=== PATIENT | male | born 1960 | race Caucasian/White ===

== ENCOUNTER 2024-05-02 08:16 | Emergency (ER) | payer BC ==
[2024-05-02] MEDS: Orphenadrine 100 MG Tab.ER PO ONE (09:16)
[2024-05-02] MEDS: Ketorolac 60 MG/2 ML SDV IM ONE (09:16)
== END 2024-05-02 09:45 | disposition home or self-care (01) ==
LOC: JD.ED 08:16
DX: M54.40 Lumbago with sciatica, unspecified side (principal); E11.9 Type 2 diabetes mellitus without complications; Z79.899 Other long term (current) drug therapy; W01.0XXA Fall on same level from slipping, tripping and stumbling without subsequent striking against object, initial encounter
CPT/HCPCS: 96372; 99283; A9270; J1885

== ENCOUNTER 2024-07-11 11:08 | Emergency (ER) | payer BC ==
[2024-07-11 12:58] LABS: BASOPHILS PERCENT AUTO 0.2 % (0.0-1.0); EOSINOPHILS ABSOLUTE AUTO 0.2 K/mm3 (0.0-0.4); EOSINOPHILS PERCENT AUTO 1.7 % (0.0-6.0); HEMOGLOBIN 12.5 gm/dl (14.0-18.0); IMMATURE GRAN ABSOLUTE AUTO 0.04 K/mm3 (0.00-0.05); IMMATURE GRAN PERCENT AUTO 0.4 % (0.0-0.4); LYMPHOCYTES ABSOLUTE AUTO 1.7 K/mm3 (1.0-4.8); LYMPHOCYTES PERCENT AUTO 18.3 % (24.0-44.0); MEAN CORPUSCULAR HEMOGLOBIN 29.6 pg (28.0-32.0); MEAN CORPUSCULAR HGB CONC 32.1 g/dl (32.0-36.0); MEAN CORPUSCULAR VOLUME 92.2 fl (83.0-99.0); MEAN PLATELET VOLUME 10.5 fl (9.4-12.4); MONOCYTES ABSOLUTE AUTO 0.6 K/mm3 (0.0-0.8); MONOCYTES PERCENT AUTO 6.6 % (0.0-8.0); NEUTROPHILS ABSOLUTE AUTO 6.9 K/mm3 (1.8-7.7); NEUTROPHILS PERCENT AUTO 72.8 % (41.0-71.0); PLATELET COUNT,PLT 256 K/mm3 (150-400); RED BLOOD CELL COUNT 4.23 M/mm3 (4.52-5.90); WHITE BLOOD CELL COUNT,WBC 9.52 K/mm3 (3.9-11.3)
[2024-07-11 13:21] LABS: A/G RATIO 0.8 (1-2); ALBUMIN 3.2 g/dl (3.4-5.0); ANION GAP 12.5 (5-15); BILIRUBIN TOTAL 0.2 mg/dL (0.2-1.0); BUN/CREATININE RATIO 27.5 (14-18); C-REACTIVE PROTEIN 5.34 mg/dL (<0.30); CALCIUM 9.4 mg/dL (8.5-10.1); CREATININE 1.2 mg/dL (0.7-1.3); EST CRCL DRUG DOSING (CG) 54.81 mL/min; POTASSIUM,K 4.5 mEq/L (3.5-5.1); PROTEIN TOTAL,TP 7.2 g/dl (6.4-8.2)
[2024-07-11] MEDS: Iopamidol 755 Mg/ML 100 ML Bottle IVPUSH ONE (13:28)
[2024-07-11] MEDS: Iopamidol 612 MG/ML 100 ML Bottle IVPUSH ONE (14:09)
== END 2024-07-11 15:55 | disposition home or self-care (01) ==
LOC: JD.ED 11:08
DX: C32.9 Malignant neoplasm of larynx, unspecified (principal); C32.0 Malignant neoplasm of glottis; I10 Essential (primary) hypertension; E78.00 Pure hypercholesterolemia, unspecified; E11.9 Type 2 diabetes mellitus without complications; Z87.891 Personal history of nicotine dependence; Z79.84 Long term (current) use of oral hypoglycemic drugs; Z79.899 Other long term (current) drug therapy
CPT/HCPCS: 36415; 70491; 71045; 80053; 83605; 85025; 86140; 87635; 87651; 99285; Q9967; U0002

== ENCOUNTER 2024-08-16 07:32 | Emergency (ER) | payer BC ==
[2024-08-16] MEDS: HYDROmorphone 0.5 MG/0.5 ML Syringe IVPUSH PRN (08:14)
[2024-08-16] MEDS: Sodium Chloride 0.9% 10 ML Syringe FLUSH PRN (08:14)
[2024-08-16 08:19] LABS: BASOPHILS PERCENT AUTO 0.3 % (0.0-1.0); EOSINOPHILS ABSOLUTE AUTO 0.1 K/mm3 (0.0-0.4); EOSINOPHILS PERCENT AUTO 0.9 % (0.0-6.0); HEMATOCRIT 39.6 % (42.0-52.0); HEMOGLOBIN 12.6 gm/dl (14.0-18.0); IMMATURE GRAN ABSOLUTE AUTO 0.14 K/mm3 (0.00-0.05); IMMATURE GRAN PERCENT AUTO 1.6 % (0.0-0.4); LYMPHOCYTES PERCENT AUTO 11.6 % (24.0-44.0); MEAN CORPUSCULAR HEMOGLOBIN 28.8 pg (28.0-32.0); MEAN CORPUSCULAR HGB CONC 31.8 g/dl (32.0-36.0); MEAN CORPUSCULAR VOLUME 90.4 fl (83.0-99.0); MEAN PLATELET VOLUME 10.8 fl (9.4-12.4); MONOCYTES ABSOLUTE AUTO 0.5 K/mm3 (0.0-0.8); MONOCYTES PERCENT AUTO 5.3 % (0.0-8.0); NEUTROPHILS ABSOLUTE AUTO 7.1 K/mm3 (1.8-7.7); NEUTROPHILS PERCENT AUTO 80.3 % (41.0-71.0); NRBC ABSOLUTE 0.02 (0.00-0.02); NRBC PERCENT 0.2 % (0.0-0.2); PLATELET COUNT,PLT 276 K/mm3 (150-400); RED BLOOD CELL COUNT 4.38 M/mm3 (4.52-5.90); WHITE BLOOD CELL COUNT,WBC 8.85 K/mm3 (3.9-11.3)
[2024-08-16 08:34] LABS: ANION GAP 21.8 (5-15); BUN/CREATININE RATIO 51.7 (14-18); CALCIUM 9.4 mg/dL (8.5-10.1); CREATININE 1.2 mg/dL (0.7-1.3); EST CRCL DRUG DOSING (CG) 54.81 mL/min; POTASSIUM,K 3.8 mEq/L (3.5-5.1)
[2024-08-16] MEDS: Ampicillin/Sulbactam Na 3 GM in Sodium Chloride 0.9% 100 ML IV ONE (08:42)
[2024-08-16 08:49] LABS: SLIDE REVIEW ABNORMAL SMEAR
== END 2024-08-16 09:45 | disposition home or self-care (01) ==
LOC: JD.ED 07:32
DX: L03.116 Cellulitis of left lower limb (principal); I10 Essential (primary) hypertension; E11.9 Type 2 diabetes mellitus without complications; E78.00 Pure hypercholesterolemia, unspecified; Z79.899 Other long term (current) drug therapy; Z79.84 Long term (current) use of oral hypoglycemic drugs
CPT/HCPCS: 36415; 80048; 85025; 87040; 96365; 96375; 96376; 99283; J0295; J1170; J3490

== ENCOUNTER 2024-08-17 07:59 | Emergency (ER) | payer BC ==
[2024-08-17] MEDS: Lidocaine 1% 20 ML MDV INJECT ONE (10:18)
== END 2024-08-17 10:40 | disposition home or self-care (01) ==
LOC: JD.ED 07:59
DX: L02.416 Cutaneous abscess of left lower limb (principal); E78.00 Pure hypercholesterolemia, unspecified; I10 Essential (primary) hypertension; E11.9 Type 2 diabetes mellitus without complications; Z79.899 Other long term (current) drug therapy; Z87.891 Personal history of nicotine dependence
CPT/HCPCS: 10060; 99283-25; J3490

== ENCOUNTER 2024-08-20 15:39 | Inpatient (IN) | payer BC ==
[2024-08-20] MEDS ORDERED: Naloxone 0.4 MG/ML SDV IVPUSH PRN ×2 (16:40→18:08)
[2024-08-20 16:45] LABS: BASOPHILS PERCENT AUTO 0.3 % (0.0-1.0); EOSINOPHILS ABSOLUTE AUTO 0.1 K/mm3 (0.0-0.4); EOSINOPHILS PERCENT AUTO 1.4 % (0.0-6.0); HEMATOCRIT 38.6 % (42.0-52.0); IMMATURE GRAN ABSOLUTE AUTO 0.15 K/mm3 (0.00-0.05); IMMATURE GRAN PERCENT AUTO 2.1 % (0.0-0.4); LYMPHOCYTES ABSOLUTE AUTO 1.2 K/mm3 (1.0-4.8); LYMPHOCYTES PERCENT AUTO 17.2 % (24.0-44.0); MEAN CORPUSCULAR HGB CONC 31.1 g/dl (32.0-36.0); MEAN PLATELET VOLUME 11.5 fl (9.4-12.4); MONOCYTES ABSOLUTE AUTO 0.5 K/mm3 (0.0-0.8); MONOCYTES PERCENT AUTO 7.1 % (0.0-8.0); NEUTROPHILS ABSOLUTE AUTO 5.1 K/mm3 (1.8-7.7); NEUTROPHILS PERCENT AUTO 71.9 % (41.0-71.0); NRBC ABSOLUTE 0.02 (0.00-0.02); NRBC PERCENT 0.3 % (0.0-0.2); PLATELET COUNT,PLT 369 K/mm3 (150-400); RED BLOOD CELL COUNT 4.29 M/mm3 (4.52-5.90); WHITE BLOOD CELL COUNT,WBC 7.09 K/mm3 (3.9-11.3)
[2024-08-20] MEDS: fentaNYL 100 MCG/2 ML SDV IVPUSH ONE ×2 (16:50→18:37)
[2024-08-20] MEDS: Sodium Chloride 0.9% 10 ML Syringe FLUSH PRN (16:50)
[2024-08-20 17:07] LABS: LACTIC ACID 2.8 mmol/L (0.4-2.0)
[2024-08-20 17:12] LABS: A/G RATIO 0.4 (1-2); ANION GAP 14.5 (5-15); BILIRUBIN TOTAL 0.2 mg/dL (0.2-1.0); BUN/CREATININE RATIO 45.6 (14-18); C-REACTIVE PROTEIN 6.13 mg/dL (<0.30); CALCIUM 8.8 mg/dL (8.5-10.1); CREATININE 1.8 mg/dL (0.7-1.3); EST CRCL DRUG DOSING (CG) 36.54 mL/min; POTASSIUM,K 3.5 mEq/L (3.5-5.1); PROTEIN TOTAL,TP 6.6 g/dl (6.4-8.2)
[2024-08-20] MEDS: Sodium Chloride 0.9% 1,000 ML IV SCH (17:50)
[2024-08-20] MEDS: cefTRIAXone 2 GM in Sodium Chloride 0.9% 100 ML IV ONE (17:50)
[2024-08-20] MEDS: Sodium Chloride 0.9% 10 ML Syringe FLUSH ONE (17:51)
[2024-08-20] MEDS: Iopamidol 612 MG/ML 100 ML Bottle IVPUSH ONE (18:12)
[2024-08-20] MEDS: Sodium Chloride 0.45% 1,000 ML IV SCH (19:03)
[2024-08-20] MEDS ORDERED: Lidocaine 1% 5 ML VIAL ONE (19:07)
[2024-08-20] MEDS ORDERED: Ondansetron 4 MG/2 ML SDV ONE (19:07)
[2024-08-20] MEDS ORDERED: Propofol 200 MG/20 ML SDV ONE (19:08)
[2024-08-20] MEDS ORDERED: fentaNYL 250 MCG/5 ML SDV ONE ×2 (19:08)
[2024-08-20] MEDS: VANCOmycin 2 GM/400 ML 2 GM in Premix Bag 1 BAG IV ONE (19:30)
[2024-08-20] MEDS: Meropenem 1 GM in Sodium Chloride 0.9% 100 ML IV ONE (19:37)
[2024-08-20] MEDS ORDERED: Lactated Ringers 1,000 ML ONE ×3 (19:43→20:15)
[2024-08-20] MEDS ORDERED: HYDROmorphone 0.5 MG/0.5 ML Syringe ONE ×2 (19:49→20:10)
[2024-08-20] MEDS ORDERED: Rocuronium 50 MG/5 ML Vial ONE (21:22)
[2024-08-20] MEDS ORDERED: Phenylephrine 1% 10 MG/ML SDV ONE (21:24)
[2024-08-20] MEDS ORDERED: ePHEDrine 50 MG/ML SDV ONE (21:24)
[2024-08-20] MEDS ORDERED: HYDROmorphone 0.5 MG/0.5 ML Syringe IVPUSH PRN (21:37)
[2024-08-20] MEDS ORDERED: fentaNYL 100 MCG/2 ML SDV IVPUSH PRN (21:37)
[2024-08-20] MEDS ORDERED: Ondansetron 4 MG/2 ML SDV IVPUSH PRN (21:37)
[2024-08-20 23:31] LABS: ANION GAP 11.7 (5-15); BUN/CREATININE RATIO 46.4 (14-18); CALCIUM 8.2 mg/dL (8.5-10.1); CREATININE 1.4 mg/dL (0.7-1.3); EST CRCL DRUG DOSING (CG) 46.98 mL/min; POTASSIUM,K 3.7 mEq/L (3.5-5.1)
[2024-08-21] MEDS: HYDROmorphone 1 MG/ML Syringe IVPUSH PRN (00:11)
[2024-08-21] MEDS: Dextrose 5% in Water 1,000 ML IV SCH (01:39)
[2024-08-21] MEDS: Insulin Glargine,Human Rec. Analog 100 Units/ML 3 ML Pen SUBCUT ONE (01:44)
[2024-08-21 04:41] LABS: BASOPHILS PERCENT AUTO 0.2 % (0.0-1.0); EOSINOPHILS ABSOLUTE AUTO 0.1 K/mm3 (0.0-0.4); EOSINOPHILS PERCENT AUTO 1.7 % (0.0-6.0); HEMATOCRIT 32.1 % (42.0-52.0); HEMOGLOBIN 9.9 gm/dl (14.0-18.0); IMMATURE GRAN ABSOLUTE AUTO 0.18 K/mm3 (0.00-0.05); IMMATURE GRAN PERCENT AUTO 2.8 % (0.0-0.4); LYMPHOCYTES ABSOLUTE AUTO 1.7 K/mm3 (1.0-4.8); LYMPHOCYTES PERCENT AUTO 25.7 % (24.0-44.0); MEAN CORPUSCULAR HGB CONC 30.8 g/dl (32.0-36.0); MEAN CORPUSCULAR VOLUME 90.9 fl (83.0-99.0); MEAN PLATELET VOLUME 11.4 fl (9.4-12.4); MONOCYTES ABSOLUTE AUTO 0.5 K/mm3 (0.0-0.8); NEUTROPHILS PERCENT AUTO 61.6 % (41.0-71.0); NRBC ABSOLUTE 0.02 (0.00-0.02); NRBC PERCENT 0.3 % (0.0-0.2); PLATELET COUNT,PLT 331 K/mm3 (150-400); RED BLOOD CELL COUNT 3.53 M/mm3 (4.52-5.90)
[2024-08-21] MEDS: Insulin Regular in 0.9 % NACL 100 ML IV SCH (04:50)
[2024-08-21 05:06] LABS: A/G RATIO 0.4 (1-2); ALBUMIN 1.6 g/dl (3.4-5.0); ANION GAP 10.5 (5-15); BILIRUBIN TOTAL 0.3 mg/dL (0.2-1.0); BUN/CREATININE RATIO 45.5 (14-18); CALCIUM 7.9 mg/dL (8.5-10.1); CREATININE 1.1 mg/dL (0.7-1.3); EST CRCL DRUG DOSING (CG) 59.79 mL/min; POTASSIUM,K 3.5 mEq/L (3.5-5.1); PROTEIN TOTAL,TP 5.5 g/dl (6.4-8.2)
[2024-08-21] MEDS: Insulin Glargine,Human Rec. Analog 100 Units/ML 3 ML Pen SUBCUT SCH ×2 (07:36→22:28)
[2024-08-21] MEDS ORDERED: Propofol 200 MG/20 ML SDV ONE (07:46)
[2024-08-21] MEDS ORDERED: Ketamine 200 MG/20 ML MDV ONE (07:46)
[2024-08-21] MEDS ORDERED: fentaNYL 100 MCG/2 ML SDV ONE (07:49)
[2024-08-21] MEDS: Piperacillin/Tazobactam 4.5 GM in Sodium Chloride 0.9% 100 ML IV ONE (07:52)
[2024-08-21] MEDS: VANCOmycin 1.25 GM/250 ML 1.25 GM in Premix Bag 1 BAG IV SCH (09:35)
[2024-08-21] MEDS: Piperacillin/Tazobactam 4.5 GM in Sodium Chloride 0.9% 100 ML IV SCH (11:17)
[2024-08-21 12:17] LABS: ANION GAP 9.2 (5-15); CALCIUM 7.9 mg/dL (8.5-10.1); EST CRCL DRUG DOSING (CG) 65.77 mL/min; POTASSIUM,K 3.2 mEq/L (3.5-5.1)
[2024-08-21] MEDS: Potassium Chloride 20 MEQ in Dextrose 5% in Water 1,000 ML IV SCH (13:54)
[2024-08-21] MEDS ORDERED: Potassium Chloride 20 MEQ in Dextrose 5% in Water 1,000 ML IV SCH (14:00)
[2024-08-21] MEDS ORDERED: Insulin Glargine,Human Rec. Analog 100 Units/ML 3 ML Pen SUBCUT SCH (21:00)
[2024-08-22 04:48] LABS: HEMATOCRIT 28.6 % (42.0-52.0); HEMOGLOBIN 9.1 gm/dl (14.0-18.0); MEAN CORPUSCULAR HEMOGLOBIN 28.5 pg (28.0-32.0); MEAN CORPUSCULAR HGB CONC 31.8 g/dl (32.0-36.0); MEAN CORPUSCULAR VOLUME 89.7 fl (83.0-99.0); MEAN PLATELET VOLUME 10.8 fl (9.4-12.4); NRBC ABSOLUTE 0.03 (0.00-0.02); NRBC PERCENT 0.4 % (0.0-0.2); PLATELET COUNT,PLT 304 K/mm3 (150-400); RED BLOOD CELL COUNT 3.19 M/mm3 (4.52-5.90); WHITE BLOOD CELL COUNT,WBC 7.86 K/mm3 (3.9-11.3)
[2024-08-22 05:24] LABS: A/G RATIO 0.4 (1-2); ALBUMIN 1.4 g/dl (3.4-5.0); ANION GAP 8.4 (5-15); BILIRUBIN TOTAL 0.3 mg/dL (0.2-1.0); BUN/CREATININE RATIO 25.7 (14-18); C-REACTIVE PROTEIN 3.09 mg/dL (<0.30); CALCIUM 7.8 mg/dL (8.5-10.1); CREATININE 0.7 mg/dL (0.7-1.3); EST CRCL DRUG DOSING (CG) 93.96 mL/min; MAGNESIUM 1.5 mg/dL (1.8-2.4); POTASSIUM,K 3.4 mEq/L (3.5-5.1); PROTEIN TOTAL,TP 5.1 g/dl (6.4-8.2); VANCOMYCIN RANDOM 24.2 ug/mL
[2024-08-22] MEDS: oxyCODONE 5 MG Tab PO PRN (08:35)
[2024-08-22] MEDS: Potassium Chloride 20 MEQ Tab.ER GTUBE ONE (08:36)
[2024-08-22] MEDS: Insulin Glargine,Human Rec. Analog 100 Units/ML 3 ML Pen SUBCUT SCH ×2 (08:47→20:33)
[2024-08-22] MEDS: oxyCODONE 5 MG Tab GTUBE PRN (12:23)
[2024-08-22] MEDS: HYDROmorphone 1 MG/ML Syringe IVPUSH ONE (12:28)
[2024-08-22] MEDS: VANCOmycin 1.25 GM/250 ML 1.25 GM in Premix Bag 1 BAG IV SCH (13:53)
[2024-08-22] MEDS: Insulin Lispro 100 Unit/ML 3 ML KwikPen SUBCUT ONE (18:30)
[2024-08-23 05:43] LABS: HEMOGLOBIN 10.1 gm/dl (14.0-18.0); MEAN CORPUSCULAR HEMOGLOBIN 28.5 pg (28.0-32.0); MEAN CORPUSCULAR HGB CONC 30.6 g/dl (32.0-36.0); MEAN PLATELET VOLUME 10.9 fl (9.4-12.4); NRBC ABSOLUTE 0.05 (0.00-0.02); NRBC PERCENT 0.6 % (0.0-0.2); RED BLOOD CELL COUNT 3.55 M/mm3 (4.52-5.90); WHITE BLOOD CELL COUNT,WBC 8.91 K/mm3 (3.9-11.3)
[2024-08-23 05:46] LABS: A/G RATIO 0.4 (1-2); ALBUMIN 1.7 g/dl (3.4-5.0); ANION GAP 10.2 (5-15); BILIRUBIN TOTAL 0.3 mg/dL (0.2-1.0); BUN/CREATININE RATIO 13.3 (14-18); C-REACTIVE PROTEIN 2.97 mg/dL (<0.30); CALCIUM 8.1 mg/dL (8.5-10.1); CREATININE 0.9 mg/dL (0.7-1.3); EST CRCL DRUG DOSING (CG) 73.08 mL/min; MAGNESIUM 1.7 mg/dL (1.8-2.4); PLATELET COUNT,PLT 430 K/mm3 (150-400); POTASSIUM,K 4.2 mEq/L (3.5-5.1)
[2024-08-23] MEDS: Insulin Glargine,Human Rec. Analog 100 Units/ML 3 ML Pen SUBCUT SCH ×2 (08:13→20:20)
[2024-08-23] MEDS: Insulin Lispro 100 Unit/ML 3 ML KwikPen SUBCUT SCH (08:14)
[2024-08-23] MEDS: Magnesium Sulfate/Water Premix 4 GM in Premix Bag 1 BAG IV ONE (08:16)
[2024-08-23 08:31] LABS: HEMOGLOBIN A1C 9.6 %
[2024-08-23] MEDS ORDERED: Insulin Glargine,Human Rec. Analog 100 Units/ML 3 ML Pen SUBCUT SCH (09:00)
[2024-08-23] MEDS: HYDROmorphone 1 MG/ML Syringe IVPUSH ONE (11:35)
[2024-08-23] MEDS: Empagliflozin 10 MG Tab GTUBE SCH (14:47)
[2024-08-23] MEDS ORDERED: Polyethylene Glycol 3350 Powder 17 GM Packet PO PRN (15:10)
[2024-08-23] MEDS ORDERED: Acetaminophen 325 MG Tab PO PRN (15:14)
[2024-08-24 05:40] LABS: HEMATOCRIT 29.6 % (42.0-52.0); HEMOGLOBIN 9.3 gm/dl (14.0-18.0); MEAN CORPUSCULAR HEMOGLOBIN 28.8 pg (28.0-32.0); MEAN CORPUSCULAR HGB CONC 31.4 g/dl (32.0-36.0); MEAN CORPUSCULAR VOLUME 91.6 fl (83.0-99.0); MEAN PLATELET VOLUME 10.6 fl (9.4-12.4); NRBC ABSOLUTE 0.04 (0.00-0.02); NRBC PERCENT 0.4 % (0.0-0.2); PLATELET COUNT,PLT 413 K/mm3 (150-400); RED BLOOD CELL COUNT 3.23 M/mm3 (4.52-5.90)
[2024-08-24 05:42] LABS: A/G RATIO 0.4 (1-2); ALBUMIN 1.6 g/dl (3.4-5.0); ANION GAP 9.7 (5-15); BILIRUBIN TOTAL 0.2 mg/dL (0.2-1.0); CALCIUM 8.2 mg/dL (8.5-10.1); CREATININE 0.7 mg/dL (0.7-1.3); EST CRCL DRUG DOSING (CG) 93.96 mL/min; MAGNESIUM 1.8 mg/dL (1.8-2.4); PHOSPHORUS 3.4 mg/dL (2.6-4.7); POTASSIUM,K 3.7 mEq/L (3.5-5.1); PROTEIN TOTAL,TP 5.4 g/dl (6.4-8.2)
[2024-08-24] MEDS: VANCOmycin 1.25 GM/250 ML 1.25 GM in Premix Bag 1 BAG IV SCH (14:13)
[2024-08-24] MEDS: Cefepime 2 GM in Sodium Chloride 0.9% 50 ML IV SCH (23:50)
[2024-08-25 05:35] LABS: A/G RATIO 0.4 (1-2); ALBUMIN 1.6 g/dl (3.4-5.0); ANION GAP 6.3 (5-15); BILIRUBIN TOTAL 0.3 mg/dL (0.2-1.0); BUN/CREATININE RATIO 11.7 (14-18); CALCIUM 8.4 mg/dL (8.5-10.1); CREATININE 0.6 mg/dL (0.7-1.3); EST CRCL DRUG DOSING (CG) 109.62 mL/min; MAGNESIUM 1.7 mg/dL (1.8-2.4); PHOSPHORUS 3.6 mg/dL (2.6-4.7); POTASSIUM,K 4.3 mEq/L (3.5-5.1); PROTEIN TOTAL,TP 5.5 g/dl (6.4-8.2)
[2024-08-25] MEDS: Insulin Glargine,Human Rec. Analog 100 Units/ML 3 ML Pen SUBCUT SCH ×3 (10:52→20:32)
[2024-08-25] MEDS: 50% Dextrose in Water 50 ML Syringe IVPUSH PRN (21:08)
[2024-08-26] MEDS ORDERED: Midazolam 1 MG/ML 2 ML SDV ONE (10:03)
[2024-08-26] MEDS ORDERED: Rocuronium 50 MG/5 ML Vial ONE ×2 (10:04)
[2024-08-26] MEDS ORDERED: Ondansetron 4 MG/2 ML SDV ONE (10:09)
[2024-08-26] MEDS ORDERED: Sugammadex Sodium 200 MG/2 ML VIAL IV ONE (10:09)
[2024-08-26] MEDS ORDERED: Ketorolac 30 MG/ML SDV ONE (10:10)
[2024-08-26] MEDS ORDERED: Ketorolac 15 MG/ML SDV ONE (10:10)
[2024-08-26] MEDS: Insulin Glargine,Human Rec. Analog 100 Units/ML 3 ML Pen SUBCUT SCH (10:25)
[2024-08-26] MEDS ORDERED: Ondansetron 4 MG/2 ML SDV IVPUSH PRN (10:51)
[2024-08-26] MEDS ORDERED: fentaNYL 100 MCG/2 ML SDV IVPUSH PRN (10:51)
[2024-08-26] MEDS ORDERED: HYDROmorphone 0.5 MG/0.5 ML Syringe IVPUSH PRN (10:51)
[2024-08-26] MEDS: fentaNYL 100 MCG/2 ML SDV IVPUSH ONE ×3 (12:00→14:49)
[2024-08-26] MEDS: EPINEPHrine 1 MG/ML SDV ONE (12:20)
[2024-08-26] MEDS: Bupivacaine 0.5% 30 ML SDV ONE (12:20)
[2024-08-26] MEDS: metroNIDAZOLE/Normal Saline 500 MG in Premix Bag 1 BAG IV SCH (15:13)
[2024-08-26] MEDS: Rosuvastatin 10 MG Tab GTUBE SCH (19:51)
[2024-08-27 06:50] LABS: BASOPHILS ABSOLUTE AUTO 0.1 K/mm3 (0.0-0.2); BASOPHILS PERCENT AUTO 0.6 % (0.0-1.0); EOSINOPHILS ABSOLUTE AUTO 0.1 K/mm3 (0.0-0.4); EOSINOPHILS PERCENT AUTO 1.7 % (0.0-6.0); HEMATOCRIT 27.4 % (42.0-52.0); HEMOGLOBIN 8.5 gm/dl (14.0-18.0); IMMATURE GRAN ABSOLUTE AUTO 0.23 K/mm3 (0.00-0.05); IMMATURE GRAN PERCENT AUTO 2.9 % (0.0-0.4); LYMPHOCYTES ABSOLUTE AUTO 1.7 K/mm3 (1.0-4.8); LYMPHOCYTES PERCENT AUTO 21.5 % (24.0-44.0); MEAN CORPUSCULAR HEMOGLOBIN 28.2 pg (28.0-32.0); MEAN PLATELET VOLUME 10.3 fl (9.4-12.4); MONOCYTES ABSOLUTE AUTO 0.7 K/mm3 (0.0-0.8); MONOCYTES PERCENT AUTO 8.9 % (0.0-8.0); NEUTROPHILS ABSOLUTE AUTO 5.2 K/mm3 (1.8-7.7); NEUTROPHILS PERCENT AUTO 64.4 % (41.0-71.0); NRBC ABSOLUTE 0.03 (0.00-0.02); NRBC PERCENT 0.4 % (0.0-0.2); PLATELET COUNT,PLT 389 K/mm3 (150-400); RED BLOOD CELL COUNT 3.01 M/mm3 (4.52-5.90); WHITE BLOOD CELL COUNT,WBC 8.05 K/mm3 (3.9-11.3)
[2024-08-27 07:16] LABS: A/G RATIO 0.4 (1-2); ALBUMIN 1.6 g/dl (3.4-5.0); ANION GAP 11.2 (5-15); BILIRUBIN TOTAL 0.3 mg/dL (0.2-1.0); BUN/CREATININE RATIO 17.1 (14-18); CALCIUM 8.6 mg/dL (8.5-10.1); CREATININE 0.7 mg/dL (0.7-1.3); EST CRCL DRUG DOSING (CG) 93.96 mL/min; POTASSIUM,K 4.2 mEq/L (3.5-5.1); PROTEIN TOTAL,TP 5.5 g/dl (6.4-8.2)
[2024-08-27] MEDS: Enoxaparin 40 MG/0.4 ML Syringe SUBCUT SCH (13:56)
== END 2024-08-28 15:53 | DRG 720 ==
LOC: JD.ED 15:39 → JD.SDS 19:43 → JD.ICU 19:44 → UNDOADMIN 22:26 → JD.MS 08-25 19:26
PROVIDERS: ADMIT Surgery; ATTEND Student in an Organized Health Care Education/Training Program
PROC: 0HBNXZZ Excision of Left Foot Skin, External Approach (ICD-10-PCS; 2024-08-20)
PROC: 0HBNXZZ Excision of Left Foot Skin, External Approach (ICD-10-PCS; 2024-08-21)
PROC: 3E03329 Introduction of Other Anti-infective into Peripheral Vein, Percutaneous Approach (ICD-10-PCS; principal; 2024-08-21 08:30)
PROC: 2W1RX6Z Compression of Left Lower Leg using Pressure Dressing (ICD-10-PCS; 2024-08-26)
DX: A41.59 Other Gram-negative sepsis (principal); M72.6 Necrotizing fasciitis; L02.416 Cutaneous abscess of left lower limb; A41.52 Sepsis due to Pseudomonas; A41.89 Other specified sepsis; R65.20 Severe sepsis without septic shock; L03.116 Cellulitis of left lower limb; E87.0 Hyperosmolality and hypernatremia; E11.65 Type 2 diabetes mellitus with hyperglycemia; E78.00 Pure hypercholesterolemia, unspecified; F32.A Depression, unspecified; G89.29 Other chronic pain; M54.9 Dorsalgia, unspecified; E86.1 Hypovolemia; C32.9 Malignant neoplasm of larynx, unspecified; Z93.1 Gastrostomy status; Z93.0 Tracheostomy status; Z79.84 Long term (current) use of oral hypoglycemic drugs; Z87.891 Personal history of nicotine dependence
CPT/HCPCS: 36415; 72193; 72193-26; 80048; 80053; 80202; 82947; 83036; 83605; 83735; 84100; 85025; 85027; 86140; 86850; 86900; 86901; 87040; 87070; 87075; 87077; 87186; 87205; 94760; 94761; 96361; 96365; 96375; 96376; 99284-25; 99285; A9270-GY; J0171; J0665; J0692; J0696; J1170; J1650; J1815; J1815-GY; J1836; J1885; J2185; J2250; J2371; J2405; J2543; J2704; J3010; J3370; J3372; J3475; J3480; J3490; J7030; J7050; J7060; J7120; Q9967

== ENCOUNTER 2025-09-17 07:13 | Day surgery (SDC) | payer BC ==
[2025-09-17] MEDS: Lactated Ringers 1,000 ML IV SCH (07:40)
[2025-09-17] MEDS ORDERED: Propofol 200 MG/20 ML SDV ONE ×2 (08:00→08:02)
== END 2025-09-17 09:46 | disposition home or self-care (01) ==
LOC: JD.SDS 07:13
PROVIDERS: ATTEND Surgery
DX: Z12.11 Encounter for screening for malignant neoplasm of colon (principal); D12.0 Benign neoplasm of cecum; D12.4 Benign neoplasm of descending colon; E11.9 Type 2 diabetes mellitus without complications; I10 Essential (primary) hypertension; E78.5 Hyperlipidemia, unspecified; Z86.0101 Personal history of adenomatous and serrated colon polyps; Z80.0 Family history of malignant neoplasm of digestive organs; Z79.899 Other long term (current) drug therapy
CPT/HCPCS: 45380; J2704; J7120